=== PATIENT | male | born 1965 | race Caucasian/White ===

== ENCOUNTER → 2021-04-05 | Outpatient (CLI) | payer BC | END | disposition home or self-care (01) | LOC: LABPAT 16:03 | PROVIDERS: ATTEND Orthopaedic Surgery | DX: Z01.812 Encounter for preprocedural laboratory examination (principal); Z22.322 Carrier or suspected carrier of Methicillin resistant Staphylococcus aureus; M16.12 Unilateral primary osteoarthritis, left hip | CPT/HCPCS: 87070 ==

== ENCOUNTER 2021-04-16 08:53 | Observation (INO) | payer BC ==
[2021-04-15 09:58] VITALS: BMI 28.5
--- NOTE | 2021-04-15 10:46 | HP ---
HISTORY AND PHYSICAL CHIEF COMPLAINT: Left hip pain. 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 He has had symptoms for the past several years. He notes his leg gives out and he has a difficult time with any weightbearing activities. He has tried medications without much relief. PAST MEDICAL HISTORY: Significant for DVT in the right leg. PAST SURGICAL HISTORY: Significant bilateral knee arthroscopy. CURRENT MEDICATIONS: Celebrex. ALLERGIES: HE DENIES DRUG ALLERGIES. FAMILY HISTORY: Significant for heart disease. SOCIAL HISTORY: Negative for current tobacco or alcohol use. REVIEW OF SYSTEMS: Sixteen-point review of systems is otherwise reviewed and noncontributory. PHYSICAL EXAMINATION: On examination, the patient is approximately 6 feet 1 inch, 210 pounds of endomorphic habitus. HEENT exam is nonfocal. NECK is supple. Passive motion of left hip: flexion 65 degrees, external rotation with the hip flexed 60 degrees, internal rotation minus 10 degrees with pain. Clinically he has 2 cm of shortening of the left lower extremity compared to the right. His distal neurovascular exam appears intact in the left lower extremity. He does have an antalgic gait pattern. AP and lateral views of the left hip obtained in the office show severe left hip osteoarthrosis with [id number] changes and flattening of the femoral head. IMPRESSION: Left hip severe osteoarthrosis/possible avascular necrosis. RECOMMENDATIONS: I talked to the patient at length regarding his condition along with treatment options. At this point he is quite limited and symptomatic because of pain related to his left hip. After thorough discussion, he opts to proceed with surgery. We will plan to proceed with a left total hip arthroplasty utilizing a lateral approach. We will institute DVT prophylaxis postoperatively. Risks and benefits were discussed at length in layman's terms. MMODL / IJN: [id number] /
[~2021-04-16 08:53] MED LIST: ACETAMINOPHEN TAB 500 MG TAB PO PRN; MELOXICAM 7.5 MG TAB PO PRN; TRANEXAMIC ACID 1,000 MG in SODIUM CHLORIDE 0.9% 100 ML IVPB PRN; VANCOMYCIN 1,500 MG in SODIUM CHLORIDE 0.9% 250 ML IVPB PRN
[2021-04-16] MEDS ORDERED: LACTATED RINGERS 1,000 ML IV ONE ×2 (10:00→12:30)
[2021-04-16] MEDS ORDERED: ONDANSETRON 4 MG/2 ML VIAL ONE (10:11)
[2021-04-16] MEDS ORDERED: DEXAMETHASONE SOD PHOSPHATE 4 MG/ML 1 ML VIAL IVP ONE (10:15)
[2021-04-16] MEDS ORDERED: fentaNYL (PF) 50 MCG/ML 2 ML AMP IVP ONE (11:06)
[2021-04-16] MEDS ORDERED: ceFAZolin 3,000 MG in SODIUM CHLORIDE 0.9% IRRIGATIO 3,000 ML IRRIGATION ONE (11:46)
[2021-04-16] MEDS ORDERED: HYDROcodone/APAP 5-325MG 1 EACH TAB PO PRN (13:05)
[2021-04-16] MEDS ORDERED: NALOXONE 0.4 MG/ML 1 ML VIAL IV PRN (13:05)
[2021-04-16] MEDS ORDERED: SODIUM CHLORIDE 0.9% 100 ML BAG ONE (13:22)
[2021-04-16] MEDS ORDERED: PROPOFOL 10 MG/ML 20 ML VIAL IV ONE (13:22)
[2021-04-16] MEDS ORDERED: MIDAZOLAM 2 MG/2 ML VIAL ONE (13:22)
[2021-04-16] MEDS ORDERED: TRANEXAMIC ACID 1,000 MG/10 ML VIAL ONE (13:22)
[2021-04-16] MEDS ORDERED: KETAMINE 10 MG/ML 20 ML VIAL ONE (13:22)
[2021-04-16] MEDS ORDERED: fentaNYL (PF) 50 MCG/ML 2 ML AMP ONE (13:22)
--- NOTE | 2021-04-16 13:24 | P.OP ---
Date of Procedure: 04/16/21 Preoperative Diagnosis: Severe left hip osteoarthrosis Postoperative Diagnosis: Same Procedure(s) Performed: Left total hip arthroplastypress-fitlateral approach Implants: Depuy Corail size 14 collared KH show press-fit femoral stem, 36+8.5 cobalt chrome femoral head, 62 mm [place] acetabular shell with neutral polyethylene liner. I also used a 6.5 x 30 mm cancellus screw. Anesthesia: spinal Surgeon: Curtis Glasgow Melt Down Furnace Operator #1: Taiwo Huntley Estimated Blood Loss (ml): 200 Pathology: other (Femoral head) Condition: stable Disposition: PACU Indications for Procedure: The patient's a 55-year-old male presents with progressive left hip pain secondary to osteoarthrosis despite conservative measures. A discussion of the risks and benefits of operative intervention versus continued conservative measures was made with patient. He opted to proceed with surgery. Operative risks to include infection, neurovascular injury, leg length discrepancy, fracture, development of blood clots, instability, component loosening/failure and need for subsequent procedures was discussed. Informed consent was obtained. Operative Findings: As below Description of Procedure: The patient was brought to the operating room, and after induction of spinal anesthesia was placed in a lateral decubitus position. The bony prominences were appropriately padded. The pelvis was stable perpendicular to the floor with a pegboard. The left lower extremity was prepped and draped in normal fashion. A 12 cm incision was then made centered over the greater trochanter extending superiorly to level the ASIS and distally in line with the femoral shaft. The skin and subcutaneous tissues were divided sharply. Electrocautery was used for hemostasis. The fascia nargis and gluteus esha fascia was split in line with the skin incision. The muscle fibers were bluntly dissected proximally. A self-retaining retractor was placed. The anterior and posterior margins of the gluteus medius muscles identified and the anterior two thirds was detached from the greater trochanter with electrocautery. The gluteus minimus tendon was identified and detached in a similar fashion. A wide capsulotomy was performed. The femoral neck fracture was identified in the lower neck cut was made approximately 1 1/2 cm above the level of the lesser trochanter with a sagittal saw at a 45 the shaft. The head was then extracted with a corkscrew. Attention was then paid towards preparing the acetabular. Anterior and posterior retractors were placed. The remaining capsular labral tissues debr ided sharply clearly defining the acetabular margins. Began reaming with a 53 mm reamer taking care to initially medialize, then reaming at 45 of abduction and 20 of anteversion. Sequential reaming is performed up to 61 mm. This was down to bleeding bony surface. A trial to mm acetabular shell was inserted at 45 of abduction and 20 of anteversion. This was fully seated. There was good rim fit and stability. I placed a posterior superior screw utilizing a 6.5 x 30 mm cancellus screw with good purchase. A neutral polyethylene liner was then impacted. Care taken to avoid any soft tissue interposition. Attention was then paid towards preparing the proximal femur. A box chisel was used to open the metaphyseal region. A canal finder was used to find the femoral canal. Sequential broaching was performed up to a size 14. This is placed in 15 of anteversion with the leg perpendicular floor judging off the trans-epicondylar axis. There is good rotational stability. A calcar mill was used to fashion the medial calcar. A trial standard neck along with a 36 mm + 8 trial head was placed. The hip was gently reduced. It was taken through range of motion. I felt to be stable in flexion and extension with internal and external rotation. I felt there was adequate shinto of soft tissue tension. The hip was gently dislocated. The trial components removed. Pulsatile lavage was utilized. The final size 14 standard collared femoral stem was inserted again with the leg perpendicular to the floor in 15 of anteversion. Again there was good rotational stability. A 36 mm +8 cobalt chrome femoral head was gently impacted. The hip was gently reduced. Again it was taken through motion and felt to be stable in flexion and extension with internal and external rotation. Pulsatile lavage was again utilized. With the leg in abduction the gluteus minimus and medius tendons reattached to the greater trochanter with #2 Ethibond suture. There was minimal drainage therefore a deep drain was not placed. The fascia nargis and gluteus esha fascia was closed with #2 Ethibond suture. The subcutaneous tissues were reapproximated interrupted 2-0 Vicryl sutures. The skin was reapproximated with 3-0 subcuticular strata fix suture. Skin tape and adhesive was applied. A sterile dressing was applied. The patient was awoken from sedation and transferred to recovery room in good condition. Blood loss was estimated 200 mL. No complications were incurred. Sponge and needle counts were correct in the case. Taiwo WHITESIDE assisted during the major composes andres e to include exposure, implantation, and closure.
--- NOTE | 2021-04-16 13:49 | XR ---
EXAMINATION TYPE: XR Hip Limited LT DATE OF EXAM: 04/16/2021 COMPARISON: X-ray dated 03/18/2021 INDICATION: Postoperative TECHNIQUE: One portable view of the left hip FINDINGS: Interval left total hip arthroplasty. No gross hardware complication. Soft tissue gas and swelling ar e seen along the operative bed. Large osteophytosis/heterotopic bone formation is seen along the lateral aspect of the left superior acetabulum, appreciated preoperatively. Arterial atherosclerotic calcifications. IMPRESSION: Interval left total hip arthroplasty as described above.
[2021-04-16] MEDS: LACTATED RINGERS 1,000 ML IV SCH (17:05)
[2021-04-16] MEDS: HYDROcodone/APAP 7.5-325MG 1 EACH TAB PO PRN (17:22)
[2021-04-16] MEDS: HYDROmorphone 1 MG/ML 1 ML SYRINGE IVP PRN (20:03)
[2021-04-16 20:16] LABS: African American GFR (CKD) >90 (>60 ml/min/1.73 sqM); Non-African American GFR(CKD) 79 (>60 ml/min/1.73 sqM)
[2021-04-16] MEDS ORDERED: SENNOSIDES-DOCUSATE SODIUM 1 EACH TAB PO SCH (21:00)
[2021-04-16] MEDS ORDERED: VANCOMYCIN 1,500 MG in SODIUM CHLORIDE 0.9% 250 ML IVPB SCH (21:30)
[2021-04-17] MEDS: HYDROcodone/APAP 7.5-325MG 1 EACH TAB PO PRN ×3 (02:30→12:39)
[2021-04-17] MEDS: HYDROmorphone 1 MG/ML 1 ML SYRINGE IVP PRN (06:12)
[2021-04-17] MEDS: LACTATED RINGERS 1,000 ML IV SCH (06:46)
[2021-04-17] MEDS ORDERED: VANCOMYCIN 1,500 MG in SODIUM CHLORIDE 0.9% 250 ML IVPB ONE (08:00)
[2021-04-17] MEDS ORDERED: VANCOMYCIN IV PER PHARMACY 1 EACH MISC MISCELLANE SCH (08:00)
[2021-04-17] MEDS ORDERED: ENOXAPARIN 40 MG/0.4 ML SYRINGE SQ SCH (09:00)
[2021-04-17 09:26] LABS: Basophils # (A) 0.02 X 10*3/uL (0.00-0.10); Basophils % (A) 0.2 %; Eosinophils # (A) 0.03 X 10*3/uL (0.04-0.35); Eosinophils % (A) 0.3 %; HCT 38.8 % (39.6-50.0); HGB 12.6 g/dL (13.0-17.0); Immature Grans, Automated 0.2 %; Lymphocytes # (A) 1.54 X 10*3/uL (0.90-5.00); Lymphocytes % (A) 16.3 %; MCHC 32.5 g/dL (32.0-37.0); MCV 95.3 fL (80.0-97.0); Mean Platelet Volume 9.6 fL (9.5-12.2); Monocytes # (A) 1.24 X 10*3/uL (0.20-1.00); Monocytes % (A) 13.1 %; NRBC Per 100 WBC 0 /100 WBCS (0.0-0.0); Neutrophils % (A) 69.9 %; Platelet Count 251 X 10*3/uL (140-440); RBC 4.07 X 10*6/uL (4.40-5.60); RDW 12.8 % (11.5-14.5); WBC 9.45 X 10*3/uL (4.50-10.00)
--- NOTE | 2021-04-17 09:40 | P.DS ---
Providers Date of admission: 04/17/21 06:44 Expected date of discharge: 04/17/21 Attending physician: Curtis Glasgow Consults: 04/16/21 13:09 Consult Physician Routine Consulting Provider: Jc Tuttle Consult Reason/Comments: Medical Management s/p left total hip arthroplasty (lateral approach) Do you want consulting provider notified?: Yes Primary care physician: Guerline Jerez Hospital Course: Date of admission: 04/16/2021 Date of discharge: 04/17/2021 Admission diagnosis: Left hip osteoarthritis Discharge diagnosis: Same Attending physician: Dr. Glasgow Surgical procedures: Left total hip arthroplasty Brief history: Patient is a 55-year-old male with a history of progressive primary left hip osteoarthritis. At this point patient has failed conservative treatment measures and has opted to proceed with a elective left total hip arthroplasty. Hospital course: Details of patient's surgery can be found in operative report. Patient tolerated the procedure well and was subsequently transported to orthopedic floor. Patient's orthopeidc and medical care was provided daily. Patient had daily laboratory tests performed for evaluation of overall blood counts. Patient had daily physical therapy to include strengthening range of motion as well as education with walker ambulation. Patient was treated with Lovenox for their postoperative DVT prophylaxis during their inpatient stay. Patient was noted to have a relatively uneventful postoperative course. Patient reported satisfactory pain control with oral pain medications by postoperative day 1. Patient showed satisfactory progress with physical therapy. Patient moved steadily through the program and had no difficulty meeting the goals by postoperative day 1. Given patient's otherwise satisfactory course and having met physical therapy goals, plan is to discharge patient home with health services on postoperative day 1. Discharge condition/disposition: Patient will be discharged home with health services in stable condition. Discharge medications: Instructions are given on resumption of patient's normal daily medications per primary care recommendation, in addition patient will be prescribed [place] 7.5 mg/325 mg; Colace; Eliquis 2.5 mg BID x 2 weeks. Discharge instructions: 1. Wound care and infection precautions, keep incision dry and covered while showering, no lotions, creams, moisturizers. No soaking, tubs, pools, hottubs. Do not scrub over the incision. 2. Weight-bear as tolerated with walker / cane until follow-up. 3. Ice and elevate when necessary. Do not exceed 20 minutes per hour with ice pack. 4. Utilize compression sleeve until seen at first follow up appointment. 5. Visiting nursing care. 6. Home physical therapy. 7. Pain meds and anticoagulants per prescription. 8. Pain medication has potential to cause constipation. Increase oral fluid and fiber intake. Contact primary care provider if you have not had a bowel movement within 48 hours after discharge 9. No anti-inflammatory medication until discussed at first post operative visit, this including Motrin, Aleve, Mobic, Diclofenac. 10. Follow up in office at 2 weeks postop with Andi Alejandra PA-C / Taiwo Huntley PA-C 11. Follow up with your primary care doctor 7-10 days after discharge. 12. Contact [facility] with any questions, . Keep incision clean, dry, intact. While showering, cover mesh tape with Saran wrap. keep mesh tape on until follow up in office in two weeks Medications: [place] 7.5 mg/325 mg; Colace; Eliquis 2.5 mg BID x 2 weeks Assessment: Left hip osteoarthritis Procedures: Left total hip arthroplasty Patient Condition at Discharge: Good Plan - Discharge Summary Discharge Rx Participant: Yes New Discharge Prescriptions: New Docusate [Colace] 100 mg PO DAILY #30 capsule Apixaban [Eliquis] 2.5 mg PO BID #60 tab HYDROcodone/APAP 7.5-325MG [[place] 7.5] 1 each PO Q6HR PRN #32 tab PRN Reason: Pain No Action Celecoxib [CeleBREX] 200 mg PO DAILY Discharge Medication List Celecoxib [CeleBREX] 200 mg PO DAILY 04/12/21 [History] Apixaban [Eliquis] 2.5 mg PO BID #60 tab 04/17/21 [Rx] Docusate [Colace] 100 mg PO DAILY #30 capsule 04/17/21 [Rx] HYDROcodone/APAP 7.5-325MG [[place] 7.5] 1 each PO Q6HR PRN #32 tab 04/17/21 [Rx] Follow up Appointment(s)/Referral(s): Taiwo Huntley, ASYA [PHYSICIAN STEEL GRINDER] - 05/02/21 Activity/Diet/Wound Care/Special Instructions: Discharge instructions: 1. Wound care and infection precautions, keep incision dry and covered while showering, no lotions, creams, moisturizers. No soaking, tubs, pools, hottubs. Do not scrub over the incision. 2. Weight-bear as tolerated with walker / cane until follow-up. 3. Ice and elevate when necessary. Do not exceed 20 minutes per hour with ice pack. 4. Utilize compression sleeve until seen at first follow up appointment. 5. Visiting nursing care. 6. Home physical therapy. 7. Pain meds and anticoagulants per prescription. 8. Pain medication has potential to cause constipation. Increase oral fluid and fiber intake. Contact primary care provider if you have not had a bowel movement within 48 hours after discharge 9. No anti-inflammatory medication until discussed at first post operative visit, this including Motrin, Aleve, Mobic, Diclofenac. 10. Follow up in office at 2 weeks postop with Andi Alejandra PA-C / Taiwo Huntley PA-C 11. Follow up with your primary care doctor 7-10 days after discharge. 12. Contact [facility] with any questions, . Keep incision clean, dry, intact. While showering, cover mesh tape with Saran wrap. keep mesh tape on until follow up in office in two weeks Medications: [place] 7.5 mg/325 mg; Colace; Eliquis 2.5 mg BID x 2 weeks Discharge Disposition: HOME WITH HOME HEALTH SERVICES
--- NOTE | 2021-04-17 10:19 | P.PN ---
Subjective Progress Note Date: 04/17/21 Principal diagnosis: Left hip osteoarthritis Patient was seen at bedside this morning at bedside sitting up in chair. Physical therapy was at bedside with patient. Patient says he was able to walk in the cox and up-and-down a couple steps with physical therapy. Patient says he does have a walker for home. Patient says he is ready to go home. Patient says he has not had bowel movement yet, however, patient says he has been passing gas. Patient denies chest pain, fever, shortness of breath, nausea, vomiting, change in vision, loss of bowel/bladder control. Objective - Vital Signs Vital signs: Vital Signs Temp 99.9 F H 04/17/21 08:00 Pulse 82 04/17/21 08:00 Resp 14 04/17/21 02:00 BP 118/67 04/17/21 08:00 Pulse Ox 95 04/17/21 08:00 Intake & Output 04/16/21 04/17/21 04/17/21 18:59 06:59 18:59 Intake Total 2251 1350 450 Output Total 200 Balance 2051 1350 450 Weight 95.254 kg Intake: IV 2251 Intake, IV Titration 900 Amount Lactated Ringers 1,000 ml 900 @ 75 mls/hr IV .[id number] CYN Rx#:[id number] Oral 450 450 Output: Estimated Blood Loss 200 Other: Voiding Method Toilet # Voids 3 - Exam Left hip: Incision is clean, dry, and intact. The mesh tape is in good condition. There is minimal soft tissue swelling and ecchymosis surrounding the medial and lateral aspects of the incision. Calf is soft, no tenderness with palpation. Plantar flexion, dorsiflexion, EHL, FHL are intact. Sensory exam to light touch throughout the extremity is intact, dorsal pedis pulses 2+. - Labs CBC & Chem 7: 04/17/21 04:32 04/16/21 19:52 Labs: Abnormal Lab Results - Last 24 Hours (Table) 04/17/21 Range/Units 04:32 RBC 4.07 L (4.40-5.60) X 10*6/uL Hgb 12.6 L (13.0-17.0) g/dL Hct 38.8 L (39.6-50.0) % Monocytes # 1.24 H (0.20-1.00) X 10*3/uL Eosinophils # 0.03 L (0.04-0.35) X 10*3/uL Assessment and Plan Assessment: Left hip osteoarthritis Postoperative day 1 status post left total hip arthroplasty Plan: 1. Left hip osteoarthritis - left total hip arthroplasty performed yesterday, 04/16/2021. Patient stable at bedside this morning. Plan discharge home today with health services. 2. Appreciate medical management 3. Pain management - [place] 7.5 mg/325 mg 4. DVT prophylaxis - eliquis 2.5 mg BID x 2 weeks 5. GI prophylaxis - Colace 6. Encourage incentive spirometer use 7. PT/OT - weightbearing as tolerated with walker 8. Discharge planning - discharge home today with health services Time with Patient: Less than 30
[2021-04-17 12:03] VITALS: BP 119/75; PULSE 87; RESP 16; TEMP 99.2
== END 2021-04-17 12:46 | disposition home health service (06) ==
LOC: OR 08:53 → 4SSUR 12:59 → OR 04-17 06:44 → 4SSUR 04-17 06:44
PROVIDERS: ADMIT Orthopaedic Surgery; ATTEND Orthopaedic Surgery
DX: M16.12 Unilateral primary osteoarthritis, left hip (principal); I10 Essential (primary) hypertension; Z20.822 Contact with and (suspected) exposure to COVID-19; Z86.718 Personal history of other venous thrombosis and embolism; Z88.1 Allergy status to other antibiotic agents; Z79.1 Long term (current) use of non-steroidal anti-inflammatories (NSAID); Z71.9 Counseling, unspecified; Z82.49 Family history of ischemic heart disease and other diseases of the circulatory system
CPT/HCPCS: 27130; 97161; 97535; 97166; 86900; 86901; 82565; 85025; 86850; 88300; 87635; 73501; 36415; G0378; C1776; J2250; J3370 ×2; J1100; J2405; J0690; J1650; J3010; J1170 ×2; J2704